=== PATIENT | female | born 1985 | race Caucasian/White ===

== ENCOUNTER 2017-02-24 14:31 | Emergency (ER) | payer OTHER ==
[2017-02-25] MEDS ORDERED: PRENATAL TABLE1 EAC2 PO (10:10)
== END 2017-02-24 15:00 | disposition admitted as inpatient to this hospital (09) ==
LOC: ERH 14:31
DX: R10.9 Unspecified abdominal pain (principal)
CPT/HCPCS: 99281

== ENCOUNTER 2017-02-25 09:25 | Emergency (ER) | payer OTHER ==
[~2017-02-25] VITALS: Ht 154.9 cm; Wt 87.5 kg
--- NOTE | 2017-02-25 10:06 | ED GI/GU/ABDOMINAL COMPLAINT ---
History of Present Illness General Chief Complaint: Abdominal Pain/Flank Pain Stated Complaint: PT STATES"IM HAVING PAIN WHERE MY APPENDIX IS" Source: patient, family, old records Exam Limitations: no limitations Vital Signs & Intake/Output Vital Signs & Intake/Output Vital Signs Date Time Temp Pulse Resp B/P B/P Pulse O2 O2 Flow FiO2 Mean Ox Delivery Rate 02/25 1252 97.5 77 18 108/55 97 Room Air Room Air 02/25 1045 99 Room Air 02/25 1037 95 20 125/76 98 Room Air 02/25 0930 97.8 89 22 111/73 98 Allergies Coded Allergies: NO KNOWN ALLERGIES (09/16/11) Reconcile Medications Vit No.130/Iron/FA ( Tablet) 27 MG IRON-800 MCG TABLET 1 TAB PO DAILY (Reported) Triage Note: PER PT PAIN TO RLQ X 1 WEEK, DENIES VOMITING OR DIARRHEA NO FEVERS NO DISCHARGE. PT IS 20 WEEKS EDC 07/12/17 Triage Nurses Notes Reviewed? yes ? Y Is pt currently ? No HPI: Ms Paris is a 31-year-old female who presented to the emergency department on 02/25/2017 complaining of abdominal pain. Patient states that her pain originally began 2 weeks ago rated at a 10 out of 10 described as sharp located in the left lower quadrant region. This period of intense pain subsequently resolved 24 hours after began. Yesterday 02/24/2017 at approximately 1 PM as the patient was eating lunch she developed a similar type pain. Pain was rated 10 out of 10. Described as sharp. Located left lower quadrant. Patient came to the ER at [facility] however owing to the prolonged wait decided to go home. The episode of pain subsequently resolved. This morning patient called her [employer] DEVEL[employer] who recommended that she come to the emergency department for additional workup. She denies any fever, chills. She does endorse nausea however no episodes of emesis have been reported. Patient also reports one episode of loose stool this morning. She is currently and following up with Dr. Mcarthur. Her next appointment to see him is scheduled for Tuesday03/01/2017. Aristides was at bedside. ([place]) Past History Travel History Traveled to [place] past 21 day No Medical History Any Pertinent Medical History? none Neurological: NONE EENT: NONE Cardiovascular: NONE Respiratory: NONE Gastrointestinal: NONE Hepatic: NONE Renal: NONE Musculoskeletal: NONE Psychiatric: NONE Endocrine: NONE Surgical History Surgical History: Psychosocial History What is your primary language Pakistani Tobacco Use: Never used Family History Hx Contributory? Yes ([place] [facility] Review of Systems Review of Systems Constitutional: Reports: see HPI. Denies: chills, diaphoresis, fever, malaise, weakness. ([place]) Physical Exam Physical Exam General Appearance: well developed/nourished, no apparent distress, alert, awake Head: atraumatic Eyes: Bilateral: PERRL. Ears, Nose, Throat, Mouth: hearing grossly normal Neck: normal inspection Respiratory: normal breath sounds, chest non-tender Cardiovascular: regular rate/rhythm Peripheral Pulses: 4+ dorsalis pedis (R), 4+ dorsalis pedis (L) Gastrointestinal: normal bowel sounds, soft, non-tender, Epigastric tenderness deep palpation Back: normal inspection, - CVA tendereness Extremities: normal range of motion Core Measures ACS in differential dx? No Severe Sepsis Present: No Septic Shock Present: No ([place]) Progress Differential Diagnosis: appendicitis, SBO, threatened AB, UTI/pyelo Plan of Care: Orders Procedure Date/time Status Add-on Test (ER Only) 02/25 1046 Active LIPASE 02/25 1030 Complete Add-on Test (ER Only) 02/25 1007 Active URINE 02/25 0938 Complete URINALYSIS 02/25 0938 Complete C-REACTIVE PROTEIN 02/25 0938 Complete COMPREHENSIVE METABOLIC PANEL 02/25 0938 Complete CBC WITHOUT DIFFERENTIAL 02/25 0938 Complete Laboratory Tests 02/25/17 1030: Anion Gap 7, Estimated GFR > 60, BUN/Creatinine Ratio 22.5, Glucose 95, Calcium 8.7, Total Bilirubin 0.3, AST 18, ALT 39, Alkaline Phosphatase 65, C-Reactive Prot, Quant 0.9, Total Protein 5.6 L, Albumin 3.1 L, Globulin 2.5, Albumin/ Globulin Ratio 1.2, Lipase 50, CBC w Diff NO MAN DIFF REQ, RBC 3.63 L, MCV 82.1 , MCH 27.8, RDW 13.7, MPV 7.2 L, Gran % 66.2, Lymphocytes % 22.2, Monocytes % 9.9 H, Eosinophils % 1.5, Basophils % 0.2, Absolute Granulocytes 5.0, Absolute Lymphocytes 1.7, Absolute Monocytes 0.8 H, Absolute Eosinophils 0.1, Absolute Basophils 0, PUBS MCHC 33.9, Urinalysis MOD H, Urine Color YEL, Urine Clarity CLEAR, Urine pH 6.0, Ur Specific Willow 1.010, Urine Protein NEG, Urine Ketones NEG, Urine Nitrite NEG, Urine Bilirubin NEG, Urine Urobilinogen 0.2, Ur Leukocyte Esterase NEG, Ur Microscopic SEDIMENT EXAMINED, Urine RBC RARE, Urine WBC RARE, Ur Epithelial Cells MOD H, Urine Hemoglobin TRACE-INTACT, Urine Glucose NEG, Urine Test POSITIVE Initial ED EKG: none ([place]) Diagnostic Imaging: Discussed w/RAD: Ultrasound. Radiology Impression: PATIENT: AUBRIE AHMADI PRESENT AGE : 31 PATIENT ACCOUNT NO: [id number] : 83 LOCATION: [facility] ORDERING PHYSICIAN: PA ARRIETA MD SERVICE DATE: 02/25/17 EXAM TYPE: US - US- VIABILITY EXAMINATION: US , VIABILITY CLINICAL INFORMATION: Abdominal pain at 20 weeks of . COMPARISON: None TECHNIQUE: Sonographic imaging of the pelvis was performed with a 5 MHz transabdominal transducer. FINDINGS: Single viable, multiple intrauterine gestation, currently in vertex presentation. The heart rate is 154 bpm. Cervical canal is closed and is approximately 4.5 cm in length. No pelvic free fluid is identified. Amniotic fluid volume is normal (REE of 14.8 cm). Grade 1 posterior placenta without evidence of placental hemorrhage. The following measurements were obtained : BPD, 4.69 cm (20 weeks, 2 days) Head circumference, 17.28 cm (19 weeks, 6 days ) Abdominal circumference, 14.48 cm (19 weeks, 6 days Femur length, 3.07 cm (19 weeks, 4 days) The estimated weight is 308 g +/- 45 g. The ultrasound estimated gestational age is 20 weeks. The estimated date of delivery (AUA) is 07/15/2017. IMPRESSION: Single viable intrauterine gestation with ultrasound estimated age of 20 weeks and estimated date of delivery of 07/15/2017. DICTATED BY: MIKEY SCHULTZ MD DATE/TIME DICTATED:02/25/171218 G[employer] WORKER: DEVORAH DATE/TIME TRANSCRIBED:02/25/171218 CONFIDENTIAL, DO NOT COPY WITHOUT APPROPRIATE AUTHORIZATION. <Electronically signed in Other Vendor System> SIGNED BY: MIKEY SCHULTZ MD 02/25/17 1228, PATIENT: AUBRIE AHMADI PRESENT AGE: 31 PATIENT ACCOUNT NO: [id number] : LOCATION: [facility] ORDERING PHYSICIAN: PA ARRIETA MD SERVICE DATE: 02/25 EXAM TYPE: US - US-COMPLETE ABDOMEN EXAMINATION: US ABDOMEN COMPLETE CLINICAL INFORMATION: 20 weeks presents with abdominal pain.. COMPARISON: None TECHNIQUE: Real-time imaging of the abdominal viscera. FINDINGS : PANCREAS: Normal. ABDOMINAL AORTA: The proximal segment is normal in caliber. INFERIOR VENA CAVA: Visualized portions are normal. LIVER: Normal. The liver demonstrates normal size, contour and echogenicity. No focal lesion or intrahepatic biliary duct dilatation. GALLBLADDER: There is a 6 mm polyp identified. The gallbladder is physiologically distended without evidence of stones, sludge, wall thickening or pericholecystic fluid. COMMON BILE DUCT: Normal in caliber measuring 0.3 cm in diameter. RIGHT KIDNEY: Mild fullness of the right renal collecting system is present, likely physiologic given the presence of 20 weeks . No renal calculi or focal parenchymal lesions. The kidney measures 10.0 cm in maximum dimension. LEFT KIDNEY: Mild fullness of the left renal collecting system is present, likely physiologic given the presence of 20 weeks . No renal calculi or focal parenchymal lesions. The kidney measures 11.6 cm in maximum dimension. SPLEEN: Normal. The spleen measures 9.9 cm in maximum dimension. FREE FLUID: None. OTHER FINDINGS: Specific sites was made for identification of the appendix which was not visualized. There is no fluid collection identified at right lower quadrant of the abdomen. IMPRESSION: 1. Nonvisualized appendix, possibility of appendicitis accordingly not excluded. 2. Mild fullness of both renal collecting system, likely physiologic given the presence of 20 weeks . 3. No sonographic evidence of cholelithiasis or biliary obstruction. Incidental note is made of a 6 mm gallbladder polyp. DICTATED BY: RONEL JOHNSON MD DATE/TIME DICTATED:02/25/171215 G[employer] UTILITY WORKER:DEVORAH DATE/TIME TRANSCRIBED:02/25/171215 CONFIDENTIAL, DO NOT COPY WITHOUT APPROPRIATE AUTHORIZATION. <Electronically signed in Other Vendor System> SIGNED BY: RONEL JOHNSON MD 02/25/17 1222 Comments: 02/25/2017 1:38:25 PM I have updated Aubrie on her test results. The cause of her abdominal pain is somewhat unclear at this point but she has a follow-up appointment with her [employer]EL[employer] doctor already scheduled for Tuesday. ([place],[facility]) Departure Departure Disposition: HOME OR SELF CARE Condition: Stable Referrals: GEORGE ADAN MD,SALO (PCP/Family) Departure Forms: Customer Survey General Discharge Information ([place]) Departure Clinical Impression Primary Impression: Nonspecific abdominal pain Secondary Impressions: Qualifiers: Weeks of gestation: 20 weeks Qualified Code: Z3A.20 - 20 weeks gestation of Additional Instructions: Please follow-up with your [employer] DEVELOPER on Tuesday as scheduled. Should your symptoms worsen in the next 24-48 hours please immediately come back to the emergency department for an additional workup. Continue to avoid fatty foods. Consider Tylenol as needed for pain. Resident Co-Sign Statement Statement: ED Attending supervision documentation- [X] I saw and evaluated the patient. I have also reviewed all the pertinent lab results and diagnostic results. I agree with the findings and the plan of care as documented in the Resident's documentation. [] I have reviewed the ED Record and agree with the Resident's documentation. [] Additions or exceptions (if any) to the Resident's note and plan are summarized below: [] ([place],[facility])
[2017-02-25] MEDS ORDERED: PRENATAL TABLE1 EAC2 PO (10:10)
[2017-02-25 10:55] LABS: ABSOLUTE BASOPHIL COUNT 0 /CUMM (0.0-0.2); ABSOLUTE EOSINOPHIL COUNT 0.1 /CUMM (0.0-0.7); ABSOLUTE LYMPH COUNT 1.7 /CUMM (1.2-3.4); ABSOLUTE MONOCYTE COUNT 0.8 /CUMM (0.10-0.60); BASOPHIL % 0.2 % (0.0-2.0); EOSINOPHIL % 1.5 % (0-5); GRANULOCYTE % 66.2 % (42.2-75.2); HEMATOCRIT 29.8 % (37-47); MEAN CORPUSCULAR HGB 27.8 PG (27.0-31.0); MEAN CORPUSCULAR HGB CONC 33.9 G/DL (33.0-37.0); MEAN CORPUSCULAR VOLUME 82.1 FL (81.0-99.0); MEAN PLATELET VOLUME 7.2 FL (7.4-10.4); PLATELET COUNT 268 /CUMM (130-400); RBC DISTRIBUTION WIDTH 13.7 % (11.5-14.5); RED BLOOD CELL CT 3.63 /CUMM (4.20-5.40); WHITE BLOOD CELL COUNT 7.6 /CUMM (4.8-10.8)
--- NOTE | 2017-02-25 12:22 | ULTRASOUND REPORT ---
EXAMINATION: US ABDOMEN COMPLETE CLINICAL INFORMATION: 20 weeks presents with abdominal pain.. COMPARISON: None TECHNIQUE: Real-time imaging of the abdominal viscera. FINDINGS: PANCREAS: Normal. ABDOMINAL AORTA: The proximal segment is normal in caliber. INFERIOR VENA CAVA: Visualized portions are normal. LIVER: Normal. The liver demonstrates normal size, contour and echogenicity. No focal lesion or intrahepatic biliary duct dilatation. GALLBLADDER: There is a 6 mm polyp identified. The gallbladder is physiologically distended without evidence of stones, sludge, wall thickening or pericholecystic fluid. COMMON BILE DUCT: Normal in caliber measuring 0.3 cm in diameter. RIGHT KIDNEY: Mild fullness of the right renal collecting system is present, likely physiologic given the presence of 20 weeks . No renal calculi or focal parenchymal lesions. The kidney measures 10.0 cm in maximum dimension. LEFT KIDNEY: Mild fullness of the left renal collecting system is present, likely physiologic given the presence of 20 weeks . No renal calculi or focal parenchymal lesions. The kidney measures 11.6 cm in maximum dimension. SPLEEN: Normal. The spleen measures 9.9 cm in maximum dimension. FREE FLUID: None. OTHER FINDINGS: Specific sites was made for identification of the appendix which was not visualized. There is no fluid collection identified at right lower quadrant of the abdomen. IMPRESSION: 1. Nonvisualized appendix, possibility of appendicitis accordingly not excluded. 2. Mild fullness of both renal collecting system, likely physiologic given the presence of 20 weeks . 3. No sonographic evidence of cholelithiasis or biliary obstruction. Incidental note is made of a 6 mm gallbladder polyp.
--- NOTE | 2017-02-25 12:28 | ULTRASOUND REPORT ---
EXAMINATION: US , VIABILITY CLINICAL INFORMATION: Abdominal pain at 20 weeks of . COMPARISON: None TECHNIQUE: Sonographic imaging of the pelvis was performed with a 5 MHz transabdominal transducer. FINDINGS: Single viable, multiple intrauterine gestation, currently in vertex presentation. The heart rate is 154 bpm. Cervical canal is closed and is approximately 4.5 cm in length. No pelvic free fluid is identified. Amniotic fluid volume is normal (REE of 14.8 cm). Grade 1 posterior placenta without evidence of placental hemorrhage. The following measurements were obtained: BPD, 4.69 cm (20 weeks, 2 days) Head circumference, 17.28 cm (19 weeks, 6 days) Abdominal circumference, 14.48 cm (19 weeks, 6 days Femur length, 3.07 cm (19 weeks, 4 days) The estimated weight is 308 g +/- 45 g. The ultrasound estimated gestational age is 20 weeks. The estimated date of delivery (AUA) is 07/15/2017. IMPRESSION: Single viable intrauterine gestation with ultrasound estimated age of 20 weeks and estimated date of delivery of 07/15/2017.
[2017-02-25 13:56] VITALS: BP 112/62
== END 2017-02-25 13:57 ==
LOC: ERH 09:25
PROVIDERS: Physician Assistant Medical
DX: O26.92 Pregnancy related conditions, unspecified, second trimester (principal); R10.32 Left lower quadrant pain
CPT/HCPCS: 81001; 81025